=== PATIENT | male | born 1960 | race Caucasian/White ===

== ENCOUNTER 2017-05-02 09:56 | Day surgery (SDC) | payer BC, SELFPAY ==
[2017-04-30 13:05] VITALS: BMI 34.0
[2017-05-02] VITALS (14 sets, daily range): BP systolic 109–134; BP diastolic 73–94; PULSE 69–81; RESP 12–20; TEMP 36.6–36.7; O2SAT 91–99
--- NOTE | 2017-05-02 11:11 | HMH.SCOPE ---
- Procedure: Date: 05/02/17 Procedure Performed:: Colonoscopy with polypectomy Indications:: Screening colonoscopy Performing Provider:: Deshawn Mi MD Referring Provider:: Dr. Hunter Sedation:: IV sedation with 11 mg of Versed and 200 mcg of fentanyl Procedure:: After consent was obtained, the patient was taken to the endoscopy suite. IV sedation ensued after he was transferred to the left lateral decubitus position. Digital rectal exam revealed inflamed hemorrhoids. No bleeding or thrombosis was noted. The colonoscope was placed in position. The entire colon was evaluated. Bowel preparation was relatively fair with irrigation and suctioning used to improve visualization. Fairly significant sigmoid diverticulosis noted. A periappendiceal polyp was excised with cold biopsy forceps. A lobulated distal transverse colon polyp was excised by way of snare. No additional mucosal lesions were seen. The patient did have fairly severe spasticity and significant lack of relaxation making visualization fairly difficult. The colonoscope was carefully removed and the patient was transferred to recovery. Findings:: Bowel preparation relatively fair Inflamed hemorrhoids with no thrombosis or active bleeding Significant sigmoid diverticulosis Significant spasticity in fairly severe lack of relaxation Periappendiceal polyp Lobulated distal transverse colon polyp (snared) Specimens:: Periappendiceal polyp Lobulated distal transverse colon polyp (snared) Recommendations:: Repeat colonoscopy is pending pathology but will likely be between 1-2 years secondary to size/nature of distal transverse colon polyp and significant lack of relaxation. Complications:: No immediate Estimated blood obtained (mL): 1
== END 2017-05-02 12:10 | disposition home or self-care (01) ==
PROVIDERS: PCP Family Medicine; Visit Provider Surgery
PROC: 0DJD8ZZ Inspection of Lower Intestinal Tract, Via Natural or Artificial Opening Endoscopic (ICD-10-PCS; CPT 45380; principal; 2017-05-02 10:30)
DX: Z12.11 Encounter for screening for malignant neoplasm of colon (principal); K64.8 Other hemorrhoids; K57.30 Diverticulosis of large intestine without perforation or abscess without bleeding; K58.9 Irritable bowel syndrome, unspecified
CPT/HCPCS: 45380; 45385; 99152; 99153

== ENCOUNTER → 2019-12-21 11:11 | Outpatient (CLI) | payer BC, SELFPAY ==
--- NOTE | 2019-12-21 11:16 | XR_ITS ---
PROCEDURE: XR LUMBAR SPINE 6V W BENDING CLINICAL INDICATION: CY HIP PAIN Low back pain COMPARISON: No exams were available for comparison FINDINGS: Normal alignment. No acute fracture or dislocation. There is degenerative disc disease from T12 to L3 with some decrease in the disc spaces and small osteophytes. Facet arthritic changes are present at L4 and L5. Flexion and extension views show no abnormal subluxation in flexion or extension. The SI joints have an unremarkable appearance. No lytic or blastic change. There is a 10 mm calcific density to the left of the L4 transverse process and could be due to soft tissue calcification. A ureteral stone would be included in the differential diagnosis. A phleboliths is also consideration. There are multiple phleboliths in the pelvis. Other findings:None. IMPRESSION: 1. Mild upper lumbar spondylosis with no abnormal subluxation in flexion or extension. 2. Calcific density to the left of the L4 transverse process which could be vascular or could be a ureteral stone. CT may confirm. Dictated by: Narayan Dawn MD 12/21/2019 11:45 Narayan Dawn MD in [place] 12/21/2019 11:45
== END ==
PROVIDERS: PCP Family Medicine; Visit Provider Family Medicine
DX: M54.5 Low back pain (principal); M25.552 Pain in left hip; M25.551 Pain in right hip
CPT/HCPCS: 72114

== ENCOUNTER → 2020-07-19 09:32 | Outpatient (CLI) | payer BC, SELFPAY ==
--- NOTE | 2020-07-19 09:36 | XR_ITS ---
PROCEDURE: XR CHEST PORTABLE CLINICAL HISTORY: COVID OUTPATIENT COMPARISON: No exams were available for comparison FINDINGS: The cardiomediastinal silhouette and pulmonary vascularity are within normal limits. The lungs are clear without infiltrates, suspicious nodules, or pleural effusions. No acute bony abnormalities. IMPRESSION: No acute findings. Dictated by: Narayan Dawn MD 07/19/2020 10:09 Narayan Dawn MD in [place] 07/19/2020 10:09
== END ==
PROVIDERS: PCP Family Medicine; Visit Provider Nurse Practitioner Family
DX: Z20.822 Contact with and (suspected) exposure to COVID-19 (principal); R05 Cough
CPT/HCPCS: 71045; U0003

== ENCOUNTER → 2020-12-08 10:42 | Outpatient (CLI) | payer BC, SELFPAY | PROVIDERS: PCP Family Medicine; Visit Provider Nurse Practitioner | DX: Z20.822 Contact with and (suspected) exposure to COVID-19 (principal) | CPT/HCPCS: C9803; U0003; U0005 ==

== ENCOUNTER 2022-01-20 14:11 | Emergency (ER) | payer BC, SELFPAY ==
[2022-01-20 14:30] VITALS: BP 134/90; PULSE 76; RESP 16; TEMP 36.7; O2SAT 98; BMI 33.7
[2022-01-20 14:48] LABS: Coronavirus 19, PCR Not Detected (NotDetected); Influenza A, PCR Not Detected (NotDetected); Influenza B, PCR Not Detected (NotDetected)
--- NOTE | 2022-01-20 15:00 | EXP.UTC ---
Discharge Plan Prescriptions Prescriptions: No Action hydrochlorothiazide 12.5 MG Capsule 12.5 mg PO DAILY amlodipine-benazepril [Lotrel] 1 EACH Capsule 1 ea PO DAILY Referrals Follow up/Referrals: Shravan Lincoln MD [Primary Care Provider] - See instructions Activity Restrictions/Add. Instructions Additional Instructions/Restrictions: covid/flu swab was sent to lab, call tomorrow for results. self isolate until test results are known to be negative No sign of a bacterial infection. Likely viral. Viruses can take 7-14 days to run their course. Nasal saline and bulb syringe or nose Bethanie to remove nasal drainage to help with nasal congestion. Hard to eat, drink, sleep with nasal congestion so important to keep this cleaned out. Monitor temp. Tylenol or Motrin as needed for pain or fever Encourage fluids, water, Gatorade, Powerade, Pedialyte if /toddler/child Warm salt water gargles Warm fluids Sore throat lozenges Sleep elevated Humidifier/vaporizer Follow-up immediately for new or worsening symptoms or no noticeable improvement over the next 48-72 hours. Clinical Impressions Clinical Impression: Upper respiratory infection, viral Instructions Patient Instructions: DI for Viral Upper Respiratory Infection -- Adult Discharge ED Provider: Dalia ([facility])Erin [facility] [place] General Stated complaint: cough Mode of Arrival: Ambulatory Source of Information: Patient Limitations: No Limitations Time Seen by Provider: 01/20/22 15:00 Description of Symptoms (Recalled from Triage Doc. by RN): PATIENT C/O BODY ACHES AND COUGH X 2 DAYS HEENT Symptoms (Recalled from RN notes): No Resp Symptoms (Recalled from RN notes): Yes Skin Symptoms (Recalled from RN notes): No MS Symptoms (Recalled from RN notes): No Functional Status (Recalled from RN notes): WNL History of Present Illness Provider Complaint: 61 yr old male presents for cough and body aches for 2 days. Related Data Home Medications Medication Instructions Recorded Confirmed amlodipine 10 mg-benazepril 20 mg 1 ea PO DAILY blood presure 04/30/17 05/02/17 capsule (Lotrel) hydrochlorothiazide 12.5 mg capsule 12.5 mg PO DAILY Fluid 04/30/17 05/02/17 Allergies Allergy/AdvReac Type Severity Reaction Status Date / Time No Known Allergies Allergy Verified 05/02/17 10:10 Worker's Comp Is this a Worker's Comp case?: No [facility] Disclaimer: The information contained in this section may have been updated after the patient was seen, as this information can be updated by other users. Medical History , [employer]) Hypertension Social History , [employer]EL[employer]) Smoking Status: Never smoker alcohol intake: never counseling provided: provider counseling substance use type: denies use current occupational status: employed Travel in the last 8 weeks: None ROS Obtained: Yes All systems reviewed & no additional complaints except as documented Constitutional Constitutional: Reports system reviewed and no additional complaints, except as documented Eyes Eyes: Reports system reviewed and no additional complaints, except as documented ENT Ears, Nose, Mouth, and Throat: Reports system reviewed and no additional complaints, except as documented Cardiovascular Cardiovascular: Reports system reviewed and no additional complaints, except as documented Respiratory Respiratory: Reports system reviewed and no additional complaints, except as documented and Reports cough Gastrointestinal Gastrointestingal: Reports system reviewed and no additional complaints, except as documented Musculoskeletal Musculoskeletal: Reports system reviewed and no additional complaints, except as documented Integumentary/Breasts Skin/Breast: Reports system reviewed and no additional complaints, except as documented Neurologic Neurologic: Reports system reviewed and no additional complai
[2022-01-20 15:40] VITALS: BP 134/90; PULSE 76; RESP 16; TEMP 36.7; O2SAT 98
== END 2022-01-20 15:43 | disposition home or self-care (01) ==
LOC: UTC 14:14
PROVIDERS: Emergency Provider Nurse Practitioner Family; PCP Family Medicine
DX: J06.9 Acute upper respiratory infection, unspecified (principal)
CPT/HCPCS: 99212; C9803; G0463; U0003; U0005

== ENCOUNTER 2023-11-19 11:19 | Outpatient (CLI) | payer BC, SELFPAY ==
--- NOTE | 2023-11-19 11:26 | XR_ITS ---
FINAL REPORT CLINICAL HISTORY: COSTOVERLEBRAL ANGLE PAIN COMPARISON: None FINDINGS: SINGLE VIEW ABDOMEN A single view of the abdomen was obtained. There is a nonobstructive bowel gas pattern. A moderate amount of stool is present in the colon. There are no abnormally dilated loops of small bowel. No abnormal calcifications are identified. Degenerative changes are present in the lumbar spine. IMPRESSION: Nonobstructive bowel gas pattern with a moderate stool burden. Reviewed, Interpreted and Dictated by Jacek Siddiqui III, MD Transcribed by Dayana Mcgovern Authenticated and [facility]
== END 2023-11-19 23:59 | disposition home or self-care (01) ==
LOC: LAB 11:21
PROVIDERS: PCP Family Medicine; Visit Provider Nurse Practitioner
DX: M54.9 Dorsalgia, unspecified (principal)
CPT/HCPCS: 74018